=== PATIENT | male | born 1960 | race Caucasian/White ===

== ENCOUNTER 2019-12-12 14:23 | Outpatient (CLI) | payer SELFPAY ==
--- NOTE | 2019-12-12 14:28 | XR_ITS ---
WS: [id number] ANKLE LEFT TECHNIQUE: 2 views of the left ankle CLINICAL INFORMATION: ANKLE PAIN LEFT COMPARISON: None. FINDINGS: Diffuse soft tissue edema. Vascular calcification. Degenerative arthritis at the ankle mortise. Achil les enthesophyte. Tiny plantar calcaneal spur. No acute fractures. XR/XR ankle LT 2V [id number] IMPRESSION: Diffuse soft tissue edema. No acute fractures.
== END 2019-12-12 14:24 | disposition home or self-care (01) ==
LOC: RADWPI 14:26
PROVIDERS: Family Provider Family Medicine; PCP Family Medicine; Visit Provider Family Medicine
DX: M25.572 Pain in left ankle and joints of left foot (principal); R60.9 Edema, unspecified
CPT/HCPCS: 73600

== ENCOUNTER 2019-12-21 10:35 | Inpatient (IN) | payer OTHER, SELFPAY ==
[2019-12-21] VITALS (8 sets, daily range): BP systolic 143–161; BP diastolic 71–89; PULSE 72–96; RESP 18–22; TEMP 36.9–38.1; O2SAT 90–97; BMI 43.4
--- NOTE | 2019-12-21 11:05 | XRR_ITS ---
PROCEDURE INFORMATION: Exam: XR Chest, 1 View Exam date and time: 12/21/2019 11:37 AM Age: 59 years old Clinical indication: Cough and shortness of breath; Patient HX: C/O chest pain, shortness of breath, cough; Additional info: Cough, SOB TECHNIQUE: Imaging protocol: XR of the chest Views: 1 view. COMPARISON: CR Chest 1 [place] [id number] 04/16/2018 4:47 PM FINDINGS: Lungs: Bilateral interstitial thickening, partial left lower lung consolidation. Pleural space: Minimal right costophrenic angle blunting. Heart/Mediastinum: Probable minimal cardiomegaly. Bones/joints: No acute findings. XR/XR chest 1V portable [id number] IMPRESSION: Bilateral pneumonia versus edema, small right pleural effusion.
--- NOTE | 2019-12-21 11:23 | W.ED.SOB ---
HPI - SOB/Dyspnea General: Chief Complaint: Shortness of Breath/Dyspnea Stated Complaint: SOB Time Seen by Provider: 12/21/19 11:04 History of Present Illness: HPI Narrative: 59-year-old male with a history of pneumonia and with concerns of shortness of breath. Patient's been sick for a couple of days went to see his primary care physician was concerned about pneumonia and sent him over to the emergency department for further evaluation. He had some lower oxygen saturations in the office. Patient has had a productive cough. No ill contacts specifically no contacts with coronavirus. The patient does have some bruising on his right side of the st[place] he has no other significant complaints just generally not feeling well. MD elicited complaint: shortness of breath and cough Pertinent past history: pneumonia Onset (ago): day(s) Context: recent illness Timing: constant and progressively worsening Severity: moderate Exacerbating factors: nothing Relieving factors: nothing Physical Exam Const: COMMON NORMALS: no acute distress, average body habitus (Morbid obesity), patient oriented x3, no limitations, healthy appearing, alert and well nourished HENMT: COMMON NORMALS: normocephalic HEAD & SCALP: normocephalic Eye: COMMON NORMALS: Equal, round and reactive pupils present, EOMs intact bilaterally and conjunctivae normal CONJUNCTIVA: Yes conjunctivae normal PUPIL: Yes Equal, round and reactive pupils present Neck/C-Spine: COMMON NORMALS: full ROM, no lymphadenopathy, supple, no meningeal signs, no JVD, Thyroid normal and No carotid bruits THYROID: Thyroid normal Chest: COMMONS NORMALS: normal inspection of the chest and normal palpation of entire chest wall Resp: COMMON NORMALS: normal respiratory effort, No retractions, No use of accessory muscles and clear to auscultation bilaterally AUSCULTATION: clear to auscultation bilaterally Cardio: COMMON NORMALS: no JVD GI: COMMON NORMALS: Normal to inspection, nondistended, normoactive bowel sounds present, Soft to palpation, non-tender, No hepatosplenomegaly present, no masses and no bruits PALPATION: Yes Soft to palpation and Yes No hepatosplenomegaly present : COMMON NORMALS: Yes no CVA tenderness BLADDER/KIDNEY EXAM: Yes no CVA tenderness Back/Pelvis: COMMON NORMALS: no CVA tenderness Extremity: COMMON NORMALS: normal to inspection, full ROM, capillary refill normal, no joint enlargement, no clubbing, cyanosis or edema, no calf tenderness and no pedal edema Neuro: COMMON NORMALS: patient oriented x3 SENSORIUM/ORIENTATION: Yes alert MENINGEAL SIGNS: Yes no meningeal signs Skin: COMMON NORMALS: no rashes or lesions noted (Large ecchymotic lesion over right abdomen), no wounds, turgor normal, no jaundice, no petechiae and no mottling GENERAL SKIN EXAM: no rashes or lesions noted (Large ecchymotic lesion over right abdomen) and turgor normal Course Vital Signs: Vital signs: Vital Signs Temperature 98.5 F 12/21/19 10:48 Pulse Rate 72 12/21/19 13:25 Respiratory Rate 18 12/21/19 13:25 Blood Pressure 143/71 12/21/19 13:25 Pulse Oximetry 92 12/21/19 13:25 MDM - SOB/Dyspnea MDM Narrative: Medical decision making narrative: 59-year-old male in with dyspnea. Congestive heart failure and a variety of different infections are leading in the differential. Routine labs x-ray and further recommendations based on reexamination and continuous vital sign monitoring will be made. Patient has bilateral infiltrates consistent with pneumonia left greater than right I think heart failure is unlikely I think infections more likely we need to test him for coronavirus and admitted to the hospital I talked to his attending outpatient physician Dr. Berg as well as the hospitalist who agrees with admission and admission orders bridge orders were written. Lab Data: Labs: Lab Results 12/21/19 12/21/19 12/21/19 Range/Units 11:21 11:21 11:21 WBC 13.9 H (4.0-10.0) 10^3/ uL RBC 3.84 L (4.1-5.3) 10^6/u L Hgb 11.8 (11.7-16.6) g/dL Hct 36.0 L (42.0-52.0) % MCV 93.8 (80-94) fL MCH 30.7 (28.0-34.0) pg MCHC 32.8 (30.0-36.0) g/dL RDW 13.2 (12.1-15.1) % Plt Count 179 (130-400) 10^3/c mm MPV 10.6 H (7.4-10.4) fL Neut % (Auto) 87.6 % Lymph % (Auto) 3.9 % Harding % (Auto) 7.1 % Eos % (Auto) 0.1 % Baso % (Auto) 0.4 % Neut # (Auto) 12.18 H (1.8-7.7) 10^3/u L Lymph # (Auto) 0.5 L (0.8-4.8) 10^3/u L Harding # (Auto) 1.0 H (0.2-0.9) 10^3/u L Eos # (Auto) 0.0 (0.0-0.8) 10^3/u L Baso # (Auto) 0.1 (0.0-0.1) 10^3/u L Nucleated RBC % (a uto) 0 % Nucleated RBCs # 0.0 /100WBC Sodium 130 L (136-145) mmol/L Potassium 3.1 L (3.5-5.1) mmol/L Chloride 84 L (98-107) mmol/L Carbon Dioxide 32 H (22-29) mmol/L Anion Gap 17.1 (5-19) BUN 18 (8-23) mg/dL Creatinine 1.2 (0.7-1.2) mg/dL GFR Calculation 61.8 L (90-130) mL/min Glucose 369 H (65-115) mg/dL Calculated Osmolal ity 282 L (285-295) mOsm/k g Lactate 0.2 L (0.5-2.2) mmol/L Calcium 8.6 (8.5-10.5) mg/dL Ferritin 641 H (30-400) ng/mL Lactate Dehydrogen ase 354 H (135-225) U/L NT-Pro-B Natriuret Pep (0-125) pg/mL 12/20/ Range/Units 11:28 WBC (4.0-10.0) 10^3/ uL RBC (4.1-5.3) 10^6/u L Hgb (11.7-16.6) g/dL Hct (42.0-52.0) % MCV (80-94) fL MCH (28.0-34.0) pg MCHC (30.0-36.0) g/dL RDW (12.1-15.1) % Plt Count (130-400) 10^3/c mm MPV (7.4-10.4) fL Neut % (Auto) % Lymph % (Auto) % Harding % (Auto) % Eos % (Auto) % Baso % (Auto) % Neut # (Auto) (1.8-7.7) 10^3/u L Lymph # (Auto) (0.8-4.8) 10^3/u L Harding # (Auto) (0.2-0.9) 10^3/u L Eos # (Auto) (0.0-0.8) 10^3/u L Baso # (Auto) (0.0-0.1) 10^3/u L Nucleated RBC % (a uto) % Nucleated RBCs # /100WBC Sodium (136-145) mmol/L Potassium (3.5-5.1) mmol/L Chloride (98-107) mmol/L Carbon Dioxide (22-29) mmol/L Anion Gap (5-19) BUN (8-23) mg/dL Creatinine (0.7-1.2) mg/dL GFR Calculation (90-130) mL/min Glucose (65-115) mg/dL Calculated Osmolal ity (285-295) mOsm/k g Lactate (0.5-2.2) mmol/L Calcium (8.5-10.5) mg/dL Ferritin (30-400) ng/mL Lactate Dehydrogen ase (135-225) U/L NT-Pro-B Natriuret Pep 53 (0-125) pg/mL Discharge Plan Discharge Patient Disposition: Admitted As Inpatient Clinical Impression: Community acquired pneumonia Qualifiers: Laterality: unspecified laterality Qualified Code(s): J18.9 - Pneumonia, unspecified organism Condition: Stable Referrals: Bunny Berg MD [Primary Care Provider] - Coding Level of Care Code ED 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
[2019-12-21 11:35] LABS: Basophils # 0.1 10^3/uL (0.0-0.1); Basophils % 0.4 %; Eosinophils % 0.1 %; Hemoglobin 11.8 g/dL (11.7-16.6); Lymphocytes # 0.5 10^3/uL (0.8-4.8); Lymphocytes % 3.9 %; Mean Corpuscular HGB Conc 32.8 g/dL (30.0-36.0); Mean Corpuscular Hemoglobin 30.7 pg (28.0-34.0); Mean Corpuscular Volume 93.8 fL (80-94); Mean Platelet Volume 10.6 fL (7.4-10.4); Monocytes % 7.1 %; Neutrophils # 12.18 10^3/uL (1.8-7.7); Neutrophils % 87.6 %; Nucleated Red Blood Cells % 0 %; Platelet Count 179 10^3/cmm (130-400); Red Blood Count 3.84 10^6/uL (4.1-5.3); Red Cell Distribution Width 13.2 % (12.1-15.1); White Blood Count 13.9 10^3/uL (4.0-10.0)
[2019-12-21 11:49] LABS: Anion Gap 17.1 (5-19); Blood Urea Nitrogen 18 mg/dL (8-23); Calcium 8.6 mg/dL (8.5-10.5); Carbon Dioxide 32 mmol/L (22-29); Chloride 84 mmol/L (98-107); Ferritin 641 ng/mL (30-400); Glomerular Filtration Rate 61.8 mL/min (90-130); Glucose 369 mg/dL (65-115); Lactate Dehydrogenase 354 U/L (135-225); Osmolality Calculated 282 mOsm/kg (285-295); Potassium 3.1 mmol/L (3.5-5.1); Sodium 130 mmol/L (136-145)
[2019-12-21] MEDS: cefTRIAXone 2,000 MG in sodium chloride 0.9% (plus) 50 ML 100 MG IV (12:32)
[2019-12-21] MEDS: azithromycin 250 mg Tablet 500 MG PO (12:32)
[2019-12-21 12:48] LABS: Lactate (Lactic Acid level) 0.2 mmol/L (0.5-2.2)
[2019-12-21 14:04] LABS: NT Pro B Type Natriuretic Pept 53 pg/mL (0-125)
[2019-12-21] MEDS: dextrose 5%-sod chloride 0.45% 1,000 ML 100 ML IV (14:41)
--- NOTE | 2019-12-21 15:18 | CTR_ITS ---
PROCEDURE INFORMATION: Exam: CT Chest Without Contrast Exam date and time: 12/21/2019 5:54 PM Age: 59 years old Clinical indication: Abdominal tenderness; Cough; Prior surgery; Additional info: Copd/pna TECHNIQUE: Imaging protocol: Computed tomography of the chest without contrast. Radiation optimization: All CT scans at this facility use at least one of these dose optimization techniques: automated exposure control; mA and/or kV adjustment per patient size (includes targeted exams where dose is matched to clinical indication); or iterative reconstruction. COMPARISON: No relevant prior studies available. RADIATION DOSE METRICS: Total DLP (mGy-cm): 9044.86 FINDINGS: Lungs: Bilateral multifocal ground-glass opacities, no focal consolidation. Pleural space: Minimal right pleural thickening versus very small right hemothorax. Heart: No cardiomegaly. No pericardial effusion. Aorta: No aortic aneurysm. Lymph nodes: No significant adenopathy. Bones/joints: No acute findings. Soft tissues: Unremarkable. IMPRESSION: Bilateral pneumonia consistent with COVID-19 pneumonia. Right pleural thickening versus minimal right hemothorax. PROCEDURE INFORMATION: Exam: CT Abdomen And Pelvis Without Contrast Exam date and time: 12/21/2019 5:54 PM Age: 59 years old Clinical indication: Abdominal tenderness; Cough; Prior surgery; Additional info: Copd/pna TECHNIQUE: Imaging protocol: Computed tomography of the abdomen and pelvis without contrast. Radiation optimization: All CT scans at this facility use at least one of these dose optimization techniques: automated exposure control; mA and/or kV adjustment per patient size (includes targeted exams where dose is matched to clinical indication); or iterative reconstruction. COMPARISON: No relevant prior studies available. RADIATION DOSE METRICS: Total DLP (mGy-cm): 3044.86 FINDINGS: Liver: Decreased attenuation is seen in the liver compatible with hepatic steatosis. Gallbladder and bile ducts: Unremarkable. No ductal dilation. Pancreas: Normal. No ductal dilation. Spleen: Normal. No splenomegaly. Adrenals: Normal. No mass. Kidneys and ureters: Normal. No hydronephrosis. Stomach and bowel: No acute findings. No obstruction. No mucosal thickening. Appendix: No evidence of appendicitis. Intraperitoneal space: Unremarkable. No free air. No significant fluid collection. Vasculature: No abdominal aortic aneurysm. Lymph nodes: No significant adenopathy. Bladder: Unremarkable as visualized. Reproductive: Unremarkable as visualized. Bones/joints: No acute findings. Soft tissues: Right anterior/anterolateral abdominal wall edema/inflammation. No focal fluid collection. CT/CT chest abd pel wo con IMPRESSION: No acute intra-abdominal findings. Right abdominal wall edema/inflammation versus hematoma. Radiation Dose CTDIVOL = (mGy): DLP = 3044.86~9044.86 (mGy-cm)
--- NOTE | 2019-12-21 15:26 | P.HP_ITS ---
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 As per the patient he twisted his ankle and fell on December 13. He is not sure which side he did fall. He states overall he fell 3 times that day. Then from Tuesday morning which was December 14 he developed cough along with pain in his right side of the chest going all the way to the back which is pulling type along with expectoration for last 3 days. His who is a nurse was away and today when she came back she noticed him to be fairly out of breath, tachypneic so she brought him to the ER. Patient states he is having yellowish colored expectoration which is more than his baseline denies of having any hemoptysis. Today morning when his was checking him up she saw a huge hem atoma on the left upper torso going all the way to the back. Patient states he is not aware if that hematoma was there before or not. He denies of having any fever but does have subjective feelings of fever. Denies of having any orthopnea, PND, runny nose, known exposure to COVID-19. He states last she was in town was around a month ago other than when he was visiting his primary care provider. Patient has a potential exposure to COVID-19 through his who works as a practical nursing instructor and was last in hospital couple of days ago. In the ER patient was desaturating to 82% on room air so was started on 2 L nasal cannula saturating up to 92%, vitals were normal. Blood work done in the ER shows white count of 13.9, hemoglobin of 11.8, sodium of 130, potassium of 3.1, creatinine of 1.2, lactate of 0.2, ferritin of 641, LDH of 354. Chest x-ray was done which on my interpretation looks like Consolidation in the left lower zone. Review of Systems General: Reports: 10 or more systems reviewed and unremarkable except in HPI and below Const: Denies: fever(s), chills, body aches, change in appetite, change in weight, malaise, night sweats, diaphoresis, change in sleep pattern, daytime sleepiness or snoring Eyes: Denies: change in vision, blurry vision, photophobia, eye discomfort or eye discharge ENMT: Denies: throat pain, enlarged tonsils, hoarseness, mouth pain, oral sores, dry mouth, tinnitus, nasal congestion or post nasal drip Card: Reports: chest pain; Denies: palpitations, irregular heart rhythm, edema, swelling of feet/ankles, lightheadedness, syncope, pre-syncope, dyspnea on exertion, orthopnea, leg pain with exertion or acrocyanosis Resp: Reports: dyspnea, productive cough and wheezing; Denies: non-productive cough, stridor, pain on inspiration, change in phlegm color, hemoptysis or chest congestion GI: Reports: abdominal pain; Denies: nausea, vomiting, hematemesis, coffee ground emesis, dysphagia, heartburn, diarrhea, constipation, bloating, GI cramping, change in bowel habits, pain on defecation, hematochezia or melena : Denies: flank pain, difficulty urinating, dysuria, urinary frequency, urinary urgency, urinary hesitancy, urinary dribbling, difficulty starting urination, change in urine stream, nocturia or hematuria Musc: Denies: neck pain, back pain, extremity pain, joint pain, joint swelling, joint redness, joint stiffness or limited range of motion Neuro: Denies: headache(s), numbness in extremities, weakness in extremities, sensory changes, lack of coordination, difficulty walking, frequent falls, dizziness, vertigo, confusion, Slurred speech present, difficulty communicating thoughts or seizure-like activity Psych: Denies: anxiety, depression, mood swings, panic attacks, hopelessness or irritability Endo: Denies: polyuria, polydipsia, tired all the time, cold intolerance, excessive sweating, flushing or heat intolerance Mason/Lymph: Denies: easy bruising or easy bleeding All/Imm: Denies: tongue swelling, facial swelling or acute wheezing Medications/Allergies Home Medications Medication Instructions Recorded Confirmed Last Taken Type escitalopram oxalate [Lexapro] 10 mg PO DAILY 12/21/19 12/21/19 12/21/19 History furosemide [Lasix] 10 mg PO DAILY PRN 0712/21/19 12/18/19 History glimepiride 4 mg PO BID 12/21/19 12/21/19 12/21/19 History hydrocodone-acetaminophen 1 tab PO Q6H PRN 12/21/19 12/21/19 12/20/19 History insulin NPH and regular human See Rx Instructions .ROUTE .COMPLEX 12/21/19 12/21/19 12/21/19 History [Novolin 70-30 FlexPen U-100] levothyroxine 75 mcg PO DAILY 12/21/19 12/21/19 12/21/19 History simvastatin 10 mg PO DAILY 12/21/19 12/21/19 12/21/19 History Allergies Allergy/AdvReac Type Severity Reaction Status Date / Time No Known Allergies Allergy Verified 12/21/19 10:48 PFSH Acute PFSH: Medical History (Updated 12/21/19 @ 16:07 by Sandip Guzman MD) CAD (coronary artery disease) CKD (chronic kidney disease), stage III Diabetes Hypertension Hypothyroid Myasthenia gravis REINALDO (obstructive sleep apnea) Recurrent pneumonia Thoracic ascending aortic aneurysm Surgical History (Updated 12/21/19 @ 15:28 by Sandip Guzman MD) History of appendectomy Vasectomy status Social History (Updated 12/21/19 @ 15:29 by Sandip Guzman MD) Smoking and tobacco status: former smoker Alcohol intake: former Substance/Drug Use: former Date of last use: Amphetamines before 1997 Household members: spouse and family Housing: House Vitals/I&O/Wt Last Vital Signs Temp 98.5 F 12/21/19 10:48 Pulse 72 12/21/19 13:25 Resp 18 12/21/19 13:25 BP 143/71 12/21/19 13:25 Pulse Ox 92 12/21/19 13:25 12/21/19 12/21/19 12/21/19 06:59 14:59 22:59 Intake Total 50 / 50 Balance 50 / 50 Weight last 48 hrs Weight 145.15 kg Physical Exam Narrative: EXAM NARRATIVE: General: AO x3, morbidly obese, in distress because of cough, saturating 92% on 2 L but desaturating on minimal exertion and talking to 86%. HEENT: PERRLA, pupils bilaterally equal and reactive Chest: Normal vesicular breath sounds left-sided bronchial breath sounds, occasional rhonchi with decreased air entry, CVS: S1-S2 regular, no murmurs, no tachycardia, no gallops, no rubs Abdomen: Soft, obese, tender in left middle quadrant, hematoma patient looks subcutaneous present in the abdominal wall ,no organomegaly, bowel sounds present Neuro: No focal deficits, no facial deformity, AO x3, power 5/5 in all limbs Data : 12/21/19 11:21 12/21/19 11:21 Micro: Microbiology 12/21/19 12:32 Blood Culture - Preliminary Blood SPECIMEN COLLECTED 12/21/19 11:21 Blood Culture - Preliminary Blood SPECIMEN COLLECTED A&P Assessment and plan (1) Community acquired pneumonia: Status: Acute Qualifiers: Laterality: unspecified laterality Qualified Code(s): J18.9 - Pneumonia, unspecified organism (2) Hypoxia: Status: Acute (3) REINALDO (obstructive sleep apnea): Status: Acute (4) Myasthenia gravis: Status: Acute (5) CKD (chronic kidney disease), stage III: Status: Acute (6) Hypertension: Status: Acute (7) Diabetes: Status: Acute (8) Hypothyroid: Status: Acute (9) Abdominal wall hematoma: Status: Acute (10) Chronic steroid use: Status: Acute Additional A&P Information 59-year-old man with past medical history of recurrent pneumonia, obstructive sleep apnea, myasthenia gravis, hypertension, type 2 diabetes mellitus, presents to the ER today because of hypoxia, cough which is been going on for last 4 to 5 days. Acute hypoxic respiratory failure: Community-acquired pneumonia: Check CT chest abdomen pelvis without contrast to rule out rib fracture, internal bleed, to have a better look at the consolidation, to rule out PJP because of chronic steroid use. Start patient on ceftriaxone, azithromycin to cover for community-acquired pneumonia. COVID-19 has been sent from the ER. Contact and droplet isolation precautions. Start patient on thiamine 100 mg twice daily, ascorbic acid 500 mg twice daily, zinc. If COVID-19 negative will discontinue vitamin C and zinc. For now we will hold off on starting full dose Bactrim because that can cause IWONA. Most likely patient should be discharged up on Bactrim prophylaxis because of chronic steroid use. Check sputum culture, urine Legionella, bacterial antigen, blood culture, urinalysis, urine culture, LDH, ferritin, procalcitonin, lactic acid, beta D glucan, PCP serologies. Oxygen supplementation keeping saturation over 92%. SpirRigoberto [place], For myasthenia gravis: Increase prednisone to 40 mg twice daily. That will also help with possible PCP or COVID-19. If both are negative will decrease back to home dose of 20 mg daily. NIF study is -40. Patient has history of REINALDO so might require CPAP overnight. He is fairly noncompliant at home. Last echocardiogram from 2018 shows an EF of 68%, mildly dilated RA, mild LVH, mild left ear, mild pulmonary hypertension with RVSP of 39 mmHg. Normal saline at 50 cc/h. CKD stage III: Baseline creatinine seems to be around 1.4. Creatinine today 1.2. Patient does have electrolyte abnormality with sodium of 130 and potassium of 3.1. Most likely because of dehydration. IV fluids as above. Anion gap of 12. Hypertension: Patient has a history of hypertension but is not any medication as per the medication list. Goal blood pressure less than 140/90 mmHg. Type 2 diabetes mellitus: Insulin at high-dose protocol. Carb consistent diet. Full code. Lovenox for DVT prophylaxis Carb consistent diet. Will change medication as per the clinical picture and results of the tests ordered. Admit to [facility] with COVID-19 precautions. Attestations Medical Necessity Statement*: More than 2 midnights for acute hypoxic respiratory failure because of pneumonia Time Spent in Patient Care: Greater than 35 minutes (>than 50% of time spent in counselling and/or direct pt care on unit) . 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
[2019-12-21] MEDS: ketorolac 30 mg/mL INJ IVP (15:57)
[2019-12-21 16:06] LABS: D Dimer 1.12 ug/mIFEU (0-0.59)
--- NOTE | 2019-12-21 16:18 | CTR_ITS ---
PROCEDURE INFORMATION: Exam: CT Angiography Chest With Contrast Exam date and time: 12/21/2019 5:54 PM Age: 59 years old Clinical indication: Cough with hemorrhage; Additional info: R/O pe, pna TECHNIQUE: Imaging protocol: Computed tomographic angiography of the chest with intravenous contrast. 3D rendering: MIP and/or 3D reconstructed images were created by the technologist. Radiation optimization: All CT scans at this facility use at least one of these dose optimization techniques: automated exposure control; mA and/or kV adjustment per patient size (includes targeted exams where dose is matched to clinical indication); or iterative reconstruction. Contrast material: OMNI 350; Contrast volume: 95 ml; Contrast route: INTRAVENOUS (IV); COMPARISON: CTA Thoracic Aorta [id number] 02/24/2018 10:57 AM RADIATION DOSE METRICS: Total DLP (mGy-cm): 636.88 FINDINGS: Pulmonary arteries: No pulmonary emboli. Aorta: No aortic aneurysm. No aortic dissection. Lungs: Bilateral multifocal ground-glass opacities. No focal consolidation. Pleural space: Right pleural thickening versus very small right hemothorax. No pneumothorax. Heart: No cardiomegaly. No pericardial effusion. Lymph nodes: No significant adenopathy. Bones/joints: No acute findings. Soft tissues: Unremarkable. CT/CT angio chest PE protcl [id number] IMPRESSION: No pulmonary embolism. Bilateral pneumonia consistent with COVID-19 pneumonia. Radiation Dose CTDIVOL = (mGy): DLP = 636.88 (mGy-cm)
[2019-12-21 16:27] LABS: Influenza A by IFA Negative (Negative); Influenza B by IFA Negative (Negative)
[2019-12-21 17:37] LABS: Procalcitonin 0.47 ng/mL (0-0.5)
[2019-12-21 17:47] LABS: Iron 23 ug/dL (59-158); Percent Saturation 10.6 % (20-50); Total Iron Binding Capacity 216 mcg/dl; Unsaturated Iron Binding 193 ug/dL (112-347)
[2019-12-21 18:06] LABS: Specific Gravity, Urine 1.015 (1.005-1.030); Urine Appearance Clear (CLEAR); Urine Color Yellow (Yellow); pH Urine 5 (5-7)
[2019-12-21 18:07] LABS: Bilirubin Urine Neg (NEGATIVE); Blood Urine Neg (Negative); Glucose Urine UA 4+ (Normal); Ketones Urine Negative (Negative); Leukocyte Esterase Urine Negative (Negative); Nitrate Urine Negative (Negative); Protein Urine Neg (Negative); Urobilinogen Urine Neg (Negative)
[2019-12-21 18:12] LABS: Add Urine Culture? No; Bacteria Urine TRACE; Squamous Epithelial Cell Urine 0-4 (0-5)
[2019-12-21] MEDS: acetaminophen 325 mg Tablet 650 MG PO (20:43)
[2019-12-21] MEDS: famotidine 20 mg/2 mL INJ IVP (20:43)
[2019-12-21] MEDS: predniSONE 20 mg Tablet 40 MG PO (20:44)
[2019-12-21] MEDS: FUROsemide 10 mg/mL SDV 2mL 20 MG IVP (21:01)
[2019-12-21 21:18] LABS: HIV 1 & 2 Antibody Non-Reactive (Non-Reactiv); HIV 1 & 2 Antigen Non-Reactive (Non-Reactiv)
[2019-12-21] MEDS: iohexol 350 mg/mL 100 mL Btl IV (21:28)
[2019-12-21 22:25] LABS: Glucose Point of Care 216 mg/dL (70-110)
[2019-12-22] VITALS (30 sets, daily range): BP systolic 138–174; BP diastolic 75–95; PULSE 68–102; RESP 18–43; TEMP 36.6–37.8; O2SAT 88–98; BMI 43.4
--- NOTE | 2019-12-22 00:44 | PC.NURSE ---
pt to the floor in a mildly distressed state. During assessment, pt was with bilateral crackles in lungs, then verified with RT Catina. Pt stated he takes lasix at home but did not take them today. Also examined a very large hematoma on pt abd spanning midline at belly button wrapping around right chest wall. I called teagan about my concerns and he ordered a stop to fluids and the scheduled lovenox and he ordered 20mg lasix IVP once and SCDs for VTE prophalaxis. After a few hours it was noticed the orders for lovenox and fluids were reordered by Cassandra. I called Dr candelaria again to clarify and he told me to clarify with Guillermo. I texted and called Megan at 0030 i also left a message. Waiting for clarification from Dr. Guzman.
[2019-12-22 06:49] LABS: Glucose Point of Care 357 mg/dL (70-110)
[2019-12-22 07:05] LABS: Basophils % 0.2 %; Hematocrit 35.3 % (42.0-52.0); Hemoglobin 11.9 g/dL (11.7-16.6); Lymphocytes # 0.6 10^3/uL (0.8-4.8); Lymphocytes % 4.3 %; Mean Corpuscular HGB Conc 33.7 g/dL (30.0-36.0); Mean Corpuscular Hemoglobin 31.8 pg (28.0-34.0); Mean Corpuscular Volume 94.4 fL (80-94); Mean Platelet Volume 10.8 fL (7.4-10.4); Monocytes % 7.4 %; Neutrophils # 11.19 10^3/uL (1.8-7.7); Neutrophils % 86.7 %; Nucleated Red Blood Cells % 0 %; Platelet Count 174 10^3/cmm (130-400); Red Blood Count 3.74 10^6/uL (4.1-5.3); White Blood Count 12.9 10^3/uL (4.0-10.0)
[2019-12-22 07:28] LABS: Alanine Aminotransferase 32 U/L (0-41); Albumin Level 3.7 g/dL (3.5-5.2); Alkaline Phosphatase 63 IU/L (40-130); Anion Gap 16.6 (5-19); Aspartate Amino Transferase 41 U/L (0-40); Blood Urea Nitrogen 23 mg/dL (8-23); Calcium 8.8 mg/dL (8.5-10.5); Carbon Dioxide 34 mmol/L (22-29); Chloride 88 mmol/L (98-107); Globulin 3.4 g/dL (1.3-4.6); Glomerular Filtration Rate 61.8 mL/min (90-130); Glucose 351 mg/dL (65-115); Osmolality Calculated 291 mOsm/kg (285-295); Potassium 3.6 mmol/L (3.5-5.1); Sodium 135 mmol/L (136-145); Total Bilirubin 0.9 mg/dL (0.15-1.2); Total Protein 7.1 g/dL (6.6-8.7)
[2019-12-22 09:31] LABS: Estmated Average Glucose 226; Hemoglobin A1C 9.5 % (4.0-6.0)
--- NOTE | 2019-12-22 10:00 | PC.CHAP ---
Pastoral Care Encounter/Spiritual Assessment Type of Contact [] Declined cognos consultant visit [] Patient/Family/Request visit [] Outpatient visit [] Follow-up visit [] Physician referral [] Code/Alert [] Routine visit [] Staff referral [] Actively dying [] Patient sleeping [] Family support [] [] Out of room [] Palliative care [] [] Receiving care in room [] Pre-surgical visit [] Trauma [] Long length of stay [] ICU visit [X] Other:COVID PT. SKIPPED VISIT PER DIRECTIVE Relational/Emotional Strength [] Patient feels connected with others/family/visitors/staff [] Distress [] Loneliness/isolation [] Abandonment Spirituality of Patient [] Person of [place] [] Attends [facility] of their [place] [] Believes in Prayer [] Reads Bible or Christian materials [] There are Spiritual issues to be addressed [employer] Assistant Interventions [] Prayer [] Active listening [] Non-anxious presence [] Spiritual/emotional support [] Crisis/trauma care [] Spiritual counseling [] Bereavement support [] Provided bereavement packet [] Provided Bible/devotional materials [] Provided toy/stuffed animal, coloring book to patient or family member [] Provided Communion [] Anointing/[place] [] Salvation [] Completed spiritual assessment [] Other: Impact on Illness or Injury [] Angry [] Fearful [] Anxious [] Often cries [] Exhaustion [] Unable to work [] Unable to attend orthodoxy [] Unable to walk/stand [] Unable to read [] Unable to drive [] Unable to eat/drink [] Unable to sleep [] Unable to be with family [] Patient intubated [] Other: Summary Time spent with patient
[2019-12-22] MEDS: azithromycin 250 mg Tablet 500 MG PO (10:31)
[2019-12-22] MEDS: famotidine 20 mg/2 mL INJ IVP ×2 (10:31→20:19)
[2019-12-22] MEDS: zinc gluconate 50 mg Tablet PO (10:31)
[2019-12-22] MEDS: thiamine 100 mg Tablet PO ×2 (10:32→18:15)
[2019-12-22] MEDS: escitalopram 10 mg Tablet PO (10:32)
[2019-12-22] MEDS: atorvastatin 40 mg Tablet 20 MG PO (10:32)
[2019-12-22] MEDS: levothyroxine 50 mcg Tablet 75 MCG PO (10:33)
[2019-12-22] MEDS: ascorbic acid 500 mg Tablet 1000 MG PO ×2 (10:38→18:15)
[2019-12-22] MEDS: predniSONE 20 mg Tablet 40 MG PO (10:39)
[2019-12-22 11:44] LABS: Glucose Point of Care 307 mg/dL (70-110)
--- NOTE | 2019-12-22 11:57 | XRR_ITS ---
PROCEDURE INFORMATION: Exam: XR Chest, 1 View Exam date and time: 12/22/2019 8:40 PM Age: 59 years old Clinical indication: Shortness of breath; Additional info: Pna TECHNIQUE: Imaging protocol: XR of the chest Views: 1 view. COMPARISON: CR XR chest 1V portable [id number] 12/21/2019 11:27 AM FINDINGS: Lungs: Interval slight worsening of the patchy bilateral airspace opacities. Pleural space: Right lateral basilar pleural thickening again evident. Possible interval minimal left lateral basilar pleural fluid. Still no pneumothorax. Heart/Mediastinum: Interval slight cardiomegaly. Continued splaying of the patricia suggesting left atrial enlargement. Vasculature: Elongated aorta again evident. Bones/joints: No obvious change in the bones. XR/XR chest 1V portable [id number] IMPRESSION: Interval slight worsening of the bilateral lung disease consistent with pneumonia. Right lateral basilar pleural thickening or fluid still present. Possible interval minimal left lateral basilar pleural fluid. Interval slight cardiomegaly. Left atrial enlargement still suspected.
[2019-12-22 12:17] LABS: ABG PCO2 44.1 mmHg (35-45); ABG PH Result 7.53 (7.35-7.45); Alveolar-Arterial Oxygen Gradi 137.9 mmHg (5-10); Arterial Blood Gas Hematocrit 37.6 % (42-52); Base Excess ABG 12.2 mmol/L (-2.0-2.0); Blood Gas Allen Test Pos; Blood Gas LPM 4.5 %; Blood Gas Sample Site Radial, right; Blood Gas Sample Type Arterial; Carboxyhemoglobin 1.6 %THgb (0.4-20.1); HCO3 ABG 36.4 mmol/L (22-26); Ionized Calcium Level - ABG 1.1 mmol/L (1.1-1.4); Methemoglobin 0.7 % (0.4-1.5); Oxygen Device NC; Oxygen Saturation ABG 93.1; PO2 ABG 61.8 mmHg (80.0-100.0); Potassium Level - ABG 3.1 mmol/L (3.5-5.0); Total Hemoglobin 12.3 g/dL (14-18)
[2019-12-22] MEDS: FUROsemide 10 mg/mL SDV 4mL 40 MG IVP ×2 (12:31→18:08)
[2019-12-22] MEDS: cefTRIAXone 1,000 MG in sodium chloride 0.9% (plus) 50 ML 100 MG IV (12:32)
[2019-12-22] MEDS: sodium chloride 0.9% 1,000 ML 75 ML IV (12:33)
[2019-12-22] MEDS: insulin glargine 100 units/1 mL 10 UNIT SUBCUT (12:59)
[2019-12-22 14:22] LABS: Ferritin 896 ng/mL (30-400); Lactate Dehydrogenase 474 U/L (135-225)
[2019-12-22 16:59] LABS: D Dimer 1.22 ug/mIFEU (0-0.59)
--- NOTE | 2019-12-22 17:49 | PC.NURSE ---
PT TRANSFERRED TO [facility] AT [facility]PROX. 1645
--- NOTE | 2019-12-22 17:51 | PC.NURSE ---
AT [facility] 1515 PAYROLL SPECIALIST WENT TO TAKE VITALS ON PT, AND HIS O2 WAS 78%, NEWS CAMERAMAN WAS CALLED FROM ANOTHER ROOM, NEWS CAMERAMAN CONTACTED RT AND DR. QIU.
[2019-12-22 18:04] LABS: Glucose Point of Care 444 mg/dL (70-110)
[2019-12-22] MEDS: dexamethasone 10 mg/mL INJ 6 MG IVP (18:08)
[2019-12-22] MEDS: enoxaparin 30 mg/0.3 mL Syringe SUBCUT (18:14)
[2019-12-22] MEDS: enoxaparin 120 mg/0.8 mL Syringe SUBCUT (18:15)
[2019-12-22] MEDS: benzonatate 100 mg Capsule 200 MG PO (18:16)
--- NOTE | 2019-12-22 18:35 | P.TS_ITS ---
Transfer Summary Providers Date of Admission: 12/21/19 12:42 Date of Discharge: 12/22/19 Attending Provider at Admission: Sandip Guzman MD Attending Provider at Transfer: Sandip Guzman MD Primary Care Provider: Bunny Berg MD Anticipated Date of Transfer: Anticipated date of transfer: 12/22/19 Receiving Facility & Provider: Receiving Provider: [Dr. Haley ] Receiving facility: [facility] ICU Diagnoses at Discharge Discharge Diagnosis (1) Community acquired pneumonia: Status: Acute Qualifiers: Laterality: unspecified laterality Qualified Code(s): J18.9 - Pneumonia, unspecified organism (2) Hypoxia: Status: Acute (3) REINALDO (obstructive sleep apnea): Status: Acute (4) Myasthenia gravis: Status: Acute (5) CKD (chronic kidney disease), stage III: Status: Acute (6) Hypertension: Status: Acute (7) Diabetes: Status: Acute (8) Hypothyroid: Status: Acute (9) Abdominal wall hematoma: Status: Acute (10) Chronic steroid use: Status: Acute (11) ARDS (adult respiratory distress syndrome): Status: Acute (12) COVID-19 virus test result unknown: Status: Acute Reason for Visit Reason for Visit: SOB Hospital Course Discharge Summary: Hank Gonzalez is a 59 year old male with past medical history of myasthenia gravis on prednisone 20 mg daily at least for last 5 years, hypothyroidism, CKD stage III, hypertension, type 2 diabetes mellitus, history of recurrent community-acquired 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 As per the patient he twisted his ankle and fell on December 13. He is not sure which side he did fall. He states overall he fell 3 times that day. Then from Tuesday morning which was December 14 he developed cough along with pain in his right side of the chest going all the way to the back which is pulling type along with expectoration for last 3 days. His who is a nurse was away and today when she came back she noticed him to be fairly out of breath, tachypneic so she brought him to the ER. Patient states he is having yellowish colored expectoration which is more than his baseline denies of having any hemoptysis. Today morning when his was checking him up she saw a huge hematoma on the left upper torso going all the way to the back. Patient states he is not aware if that hematoma was there before or not. He denies of having any fever but does have subjective feelings of fever. D enies of having any orthopnea, PND, runny nose, known exposure to COVID-19. He states last she was in town was around a month ago other than when he was visiting his primary care provider. Patient has a potential exposure to COVID- 19 through his who works as a director school of nursing and was last in hospital couple of days ago. In the ER patient was desaturating to 82% on room air so was started on 2 L nasal cannula saturating up to 92%, vitals were normal. Blood work done in the ER shows white count of 13.9, hemoglobin of 11.8, sodium of 130, potassium of 3.1, creatinine of 1.2, lactate of 0.2, ferritin of 641, LDH of 354. Chest x-ray was done which on my interpretation looks like Consolidation in the left lower zone. He was admitted to the hospital. COVID-19 was sent out. At start he was requiring 2 L of oxygenation. He was started on increased dose of steroids.NIF study done on admission was -40. CTA chest abdomen pelvis done on admission was negative for any acute intra-abdominal pathology, no pulmonary embolism but were consistent with bilateral pneumonia consistent with COVID-19 pneumonia as per the radiology read. Other possibility was a possible PCP pneumonia given the fact that patient has been on high-dose steroids without Bactrim prophylaxis. PCP PCR and D glucan have been sent out and the results are awaited. Bactrim has not been started as we are still awaiting COVID-19 results and we do not want patient to go into acute kidney injury because of Bactrim. Today morning patient was doing fine and was saturating more than 93% on 2 L nasal cannula but around 4:30 PM patient started having extreme bout of cough after which he required more and more off oxygen supplementation at present is on 100% oxygen supplementation 50 L high flow nasal cannula saturating 91%. Patient is denying of any chest pain. He has been started on full dose anticoagulation. He is also been started on IV Decadron. He is receiving IV Lasix and is around 1.5 L negative. COVID-19 results are still pending. But because patient has a high chance of COVID-19 and is full code and most likely requires further treatment including conventional plasma, prone ventilation treatment which is not possible at [facility] higher tertiary center transfer was sought and patient was accepted at [facility] ICU. Physical Exam Narrative: EXAM NARRATIVE: General: AO x3, morbidly obese, in distress because of cough, saturating 92% on 2 L but desaturating on minimal exertion and talking to 86%. HEENT: PERRLA, pupils bilaterally equal and reactive Chest: Normal vesicular breath sounds left-sided bronchial breath sounds, occasional rhonchi with decreased air entry, CVS: S1-S2 regular, no murmurs, no tachycardia, no gallops, no rubs Abdomen: Soft, obese, tender in left middle quadrant, hematoma patient looks subcutaneous present in the abdominal wall ,no organomegaly, bowel sounds present Neuro: No focal deficits, no facial deformity, AO x3, power 5/5 in all limbs TS Data Data Completed and Pending: Completed Studies During Hospitalization Category Date Time Status CT angio chest PE protcl [id number] Urge nt Cat Scan 12/21/19 16:[address] chest abd pel wo con Urgent Cat Scan 12/21/19 15:18 Completed XR chest 1V akshat ble [id number] Urgent Exams 12/21/19 11:05 Completed Pending at discharge Category Date Time Status XR chest 1V akshat ble [id number] Stat Exams 12/22/19 11:57 Ordered ABG FULL [Arteria l Blood Gas Full] Stat Lab 12/22/19 12:06 Results Arterial Blood Ga s Full Routine Lab 12/22/19 19:00 Ordered Blood Culture Sta t Lab 12/21/19 12:32 Results Complete Blood Co unt w/Auto AM LABS Lab 12/23/19 04:00 Ordered Comprehensive Met abolic Panel AM LA BS Lab 12/23/19 04:00 Ordered Coronavirus Lab T est PTC Routine Lab 12/21/19 14:18 Received D Dimer AM LABS Lab 12/23/19 04:00 Ordered D Dimer AM LABS Lab 12/24/19 04:00 Ordered Ferritin AM LABS Lab 12/23/19 04:00 Ordered Ferritin AM LABS Lab 12/24/19 04:00 Ordered Lactate Dehydroge nase AM LABS Lab 12/23/19 04:00 Ordered Lactate Dehydroge nase AM LABS Lab 12/24/19 04:00 Ordered MRSA by PCR Routi ne Lab 12/21/19 15:55 Ordered Miscellaneous Becca t Routine Lab 12/21/19 20:07 Ordered Miscellaneous Becca t Stat Lab 12/21/19 20:08 Ordered Sputum Culture an d Gram Stain Stat Lab 12/21/19 17:00 Results Labs from last 24 hours 12/22/19 12/22/19 12/22/19 17:59 13:35 12:06 WBC RBC Hgb Hct MCV MCH MCHC RDW Plt Count MPV Neut % (Auto) Lymph % (Auto) [place] % (Auto) Eos % (Auto) Baso % (Auto) Neut # (Auto) Lymph # (Auto) [place] # (Auto) Eos # (Auto) Baso # (Auto) Nucleated RBC % (a uto) Nucleated RBCs # D-Dimer Specimen Type Arterial Sample Site Radial, right ABG pH 7.53 H ABG pCO2 44.1 ABG pO2 61.8 L ABG HCO3 36.4 H ABG O2 Saturation 93.1 ABG Base Excess 12.2 H Marco A Test Pos A-a O2 Gradient 137.9 H Hematocrit 37.6 L Hgb O2 Saturation 91.0 L Carboxyhemoglobin 1.6 Methemoglobin 0.7 Total Hemoglobin 12.3 L Ionized Calcium 1.1 O2 Delivery Device Nc O2 Liters/Min 4.5 FiO2 36.0 Mill Order Scheduler ID ed Sodium Pending Potassium 3.1 L Chloride Carbon Dioxide Anion Gap BUN Creatinine GFR Calculation Glucose 341.0 H POC Glucose 444 Estimat Average Gl ucose Hemoglobin A1c Calculated Osmolal ity Calcium Ferritin 896 H Total Bilirubin AST ALT Alkaline Phosphata se Lactate Dehydrogen ase 474 H Total Protein Albumin Globulin HIV 1&2 Ab & HIV 1 Ag HIV 1&2 Antibody 12/22/19 12/22/19 12/22/19 11:22 06:45 06:40 WBC RBC Hgb Hct MCV MCH MCHC RDW Plt Count MPV Neut % (Auto) Lymph % (Auto) [place] % (Auto) Eos % (Auto) Baso % (Auto) Neut # (Auto) Lymph # (Auto) [place] # (Auto) Eos # (Auto) Baso # (Auto) Nucleated RBC % (a uto) Nucleated RBCs # D-Dimer 1.22 H Specimen Type Sample Site ABG pH ABG pCO2 ABG pO2 ABG HCO3 ABG O2 Saturation ABG Base Excess Marco A Test A-a O2 Gradient Hematocrit Hgb O2 Saturation Carboxyhemoglobin Methemoglobin Total Hemoglobin Ionized Calcium O2 Delivery Device O2 Liters/Min FiO2 Mill Order Scheduler ID Sodium Potassium Chloride Carbon Dioxide Anion Gap BUN Creatinine GFR Calculation Glucose POC Glucose 307 357 Estimat Average Gl ucose Hemoglobin A1c Calculated Osmolal ity Calcium Ferritin Total Bilirubin AST ALT Alkaline Phosphata se Lactate Dehydrogen ase Total Protein Albumin Globulin HIV 1&2 Ab & HIV 1 Ag HIV 1&2 Antibody 12/22/19 12/22/19 12/22/19 06:40 06:40 06:40 WBC 12.9 H RBC 3.74 L Hgb 11.9 Hct 35.3 L MCV 94.4 H MCH 31.8 MCHC 33.7 RDW 13.0 Plt Count 174 MPV 10.8 H Neut % (Auto) 86.7 Lymph % (Auto) 4.3 [place] % (Auto) 7.4 Eos % (Auto) 0.0 Baso % (Auto) 0.2 Neut # (Auto) 11.19 H Lymph # (Auto) 0.6 L [place] # (Auto) 1.0 H Eos # (Auto) 0.0 Baso # (Auto) 0.0 Nucleated RBC % (a uto) 0 Nucleated RBCs # 0.0 D-Dimer Specimen Type Sample Site ABG pH ABG pCO2 ABG pO2 ABG HCO3 ABG O2 Saturation ABG Base Excess Marco A Test A-a O2 Gradient Hematocrit Hgb O2 Saturation Carboxyhemoglobin Methemoglobin Total Hemoglobin Ionized Calcium O2 Delivery Device O2 Liters/Min FiO2 Mill Order Scheduler ID Sodium 135 L Potassium 3.6 Chloride 88 L Carbon Dioxide 34 H Anion Gap 16.6 BUN 23 Creatinine 1.2 GFR Calculation 61.8 L Glucose 351 H POC Glucose Estimat Average Gl ucose 226 Hemoglobin A1c 9.5 H Calculated Osmolal ity 291 Calcium 8.8 Ferritin Total Bilirubin 0.9 AST 41 H ALT 32 Alkaline Phosphata se 63 Lactate Dehydrogen ase Total Protein 7.1 Albumin 3.7 Globulin 3.4 HIV 1&2 Ab & HIV 1 Ag HIV 1&2 Antibody 12/21/19 12/21/19 22:12 11:21 WBC RBC Hgb Hct MCV MCH MCHC RDW Plt Count MPV Neut % (Auto) Lymph % (Auto) [place] % (Auto) Eos % (Auto) Baso % (Auto) Neut # (Auto) Lymph # (Auto) [place] # (Auto) Eos # (Auto) Baso # (Auto) Nucleated RBC % (a uto) Nucleated RBCs # D-Dimer Specimen Type Sample Site ABG pH ABG pCO2 ABG pO2 ABG HCO3 ABG O2 Saturation ABG Base Excess Marco A Test A-a O2 Gradient Hematocrit Hgb O2 Saturation Carboxyhemoglobin Methemoglobin Total Hemoglobin Ionized Calcium O2 Delivery Device O2 Liters/Min FiO2 Mill Order Scheduler ID Sodium Potassium Chloride Carbon Dioxide Anion Gap BUN Creatinine GFR Calculation Glucose POC Glucose 216 Estimat Average Gl ucose Hemoglobin A1c Calculated Osmolal ity Calcium Ferritin Total Bilirubin AST ALT Alkaline Phosphata se Lactate Dehydrogen ase Total Protein Albumin Globulin HIV 1&2 Ab & HIV 1 Ag Non-reactive HIV 1&2 Antibody Non-reactive Addt'l Data from Hospital Stay: CTA PE protocol: Patient: Hank Gonzalez #: [id number] : 9Acct#:[id number] Age/Sex: 59 / MADM Date: 12/21/19 Loc: [facility]/Bed: [facility] Attending Dr: Sandip Guzman MD Ordering Provider/Ordering MD: Sandip Guzman MD Date of Service: 12/21/19 Procedure(s): CT angio chest PE protcl [id number] Accession Number(s): [id number] Report Number: [id number] PROCEDURE INFORMATION: Exam: CT Angiography Chest With Contrast Exam date and time: 12/21/2019 5:54 PM Age: 59 years old Clinical indication: Cough with hemorrhage; Additional info: R/O pe, pna TECHNIQUE: Imaging protocol: Computed tomographic angiography of the chest with intravenous contrast. 3D rendering: MIP and/or 3D reconstructed images were created by the technologist. Radiation optimization: All CT scans at this facility use at least one of these dose optimization techniques: automated exposure control; mA and/or kV adjustment per patient size (includes targeted exams where dose is matched to clinical indication); or iterative reconstruction. Contrast material: OMNI 350; Contrast volume: 95 ml; Contrast route: INTRAVENOUS (IV); COMPARISON: CTA Thoracic Aorta [id number] 02/24/2018 10:57 AM RADIATION DOSE METRICS: Total DLP (mGy-cm): 636.88 FINDINGS: Pulmonary arteries: No pulmonary emboli. Aorta: No aortic aneurysm. No aortic dissection. Lungs: Bilateral multifocal ground-glass opacities. No focal consolidation. Pleural space: Right pleural thickening versus very small right hemothorax. No pneumothorax. Heart: No cardiomegaly. No pericardial effusion. Lymph nodes: No significant adenopathy. Bones/joints: No acute findings. Soft tissues: Unremarkable. CT/CT angio chest PE protcl [id number] IMPRESSION: No pulmonary embolism. Bilateral pneumonia consistent with COVID-[address] abdomen pelvis: PROCEDURE INFORMATION: Exam: CT Abdomen And Pelvis Without Contrast Exam date and time: 12/21/2019 5:54 PM Age: 59 years old Clinical indication: Abdominal tenderness; Cough; Prior surgery; Additional info: Copd/pna TECHNIQUE: Imaging protocol: Computed tomography of the abdomen and pelvis without contrast. Radiation optimization: All CT scans at this facility use at least one of these dose optimization techniques: automated exposure control; mA and/or kV adjustment per patient size (includes targeted exams where dose is matched to clinical indication); or iterative reconstruction. COMPARISON: No relevant prior studies available. RADIATION DOSE METRICS: Total DLP (mGy-cm): 3044.86 FINDINGS: Liver: Decreased attenuation is seen in the liver compatible with hepatic steatosis. Gallbladder and bile ducts: Unremarkable. No ductal dilation. Pancreas: Normal. No ductal dilation. Spleen: Normal. No splenomegaly. Adrenals: Normal. No mass. Kidneys and ureters: Normal. No hydronephrosis. Stomach and bowel: No acute findings. No obstruction. No mucosal thickening. Appendix: No evidence of appendicitis. Intraperitoneal space: Unremarkable. No free air. No significant fluid collection. Vasculature: No abdominal aortic aneurysm. Lymph nodes: No significant adenopathy. Bladder: Unremarkable as visualized. Reproductive: Unremarkable as visualized. Bones/joints: No acute findings. Soft tissues: Right anterior/anterolateral abdominal wall edema/inflammation. No focal fluid collection. CT/CT chest abd pel wo con IMPRESSION: No acute intra-abdominal findings. Right abdominal wall edema/inflammation versus hematoma. Vitals: Last Vital Signs Temp 98.3 F 12/22/19 12:00 Pulse 102 H 12/22/19 16:30 Resp 26 H 12/22/19 16:30 BP 138/85 12/22/19 12:00 Pulse Ox 91 12/22/19 16:30 TS Medications Medications Home Medications escitalopram oxalate [Lexapro] 10 mg PO DAILY 12/21/19 [History Confirmed 12/21/19] furosemide [Lasix] 10 mg PO DAILY PRN 12/21/19 [History Confirmed 12/21/19] glimepiride 4 mg PO BID 12/21/19 [History Confirmed 12/21/19] hydrocodone-acetaminophen 1 tab PO Q6H PRN 12/21/19 [History Confirmed 12/21/19] insulin NPH and regular human [Novolin 70-30 FlexPen U-100] See Rx Instructions .ROUTE .COMPLEX 12/21/19 [History Confirmed 12/21/19] levothyroxine 75 mcg PO DAILY 12/21/19 [History Confirmed 12/21/19] simvastatin 10 mg PO DAILY 12/21/19 [History Confirmed 12/21/19] Active Medications Acetaminophen (Tylenol) 650 mg PO Q6H PRN PRN Reason: Mild/Mod Pain Or Temp >/= 101 Last Admin: 12/21/19 20:43 Dose: 650 mg Documented by: Hydrocodone Bitart/Acetaminophen ([place] 5-325 Mg) 1 tab PO Q6H PRN PRN Reason: Pain Albuterol Sulfate (Albuterol) 2.5 mg INHALATION Q4H.RESPIRATORY PRN PRN Reason: SHORTNESS OF BREATH Albuterol Sulfate (Ventolin) 2 puff INHALATION Q4H.RESPIRATORY PRN PRN Reason: SHORTNESS OF BREATH Ascorbic Acid (Vitamin C) 1,000 mg PO BID [facility] Last Admin: 12/22/19 18:15 Dose: 1,000 mg Documented by: Atorvastatin Calcium (Lipitor) 20 mg PO DAILY [facility] Last Admin: 12/22/19 10:32 Dose: 20 mg Documented by: Azithromycin (Zithromax) 500 mg PO DAILY [facility]; Protocol Last Admin: 12/22/19 10:31 Dose: 500 mg Documented by: Benzonatate (Tessalon Pearls) 200 mg PO TID [facility] Last Admin: 12/22/19 18:16 Dose: 200 mg Documented by: Bisacodyl (Dulcolax) 10 mg PO DAILY PRN PRN Reason: CONSTIPATION Dexamethasone (Decadron) 6 mg IVP Q24H [facility] Last Admin: 12/22/19 18:08 Dose: 6 mg Documented by: Dextrose (D50w) 25 ml IVP ONCE PRN; Protocol PRN Reason: hypoglycemia protocol Dextrose (D50w) 50 ml IVP PRN PRN; Protocol PRN Reason: hypoglycemia protocol Enoxaparin Sodium (Lovenox) 120 mg SUBCUT Q12H [facility] Last Admin: 12/22/19 18:15 Dose: 120 mg Documented by: Enoxaparin Sodium (Lovenox) 30 mg SUBCUT Q12H [facility] Last Admin: 12/22/19 18:14 Dose: 30 mg Documented by: Escitalopram Oxalate (Lexapro) 10 mg PO DAILY [facility] Last Admin: 12/22/19 10:32 Dose: 10 mg Documented by: Famotidine (Pepcid Inj) 20 mg IVP Q12H [facility] Last Admin: 12/22/19 10:31 Dose: 20 mg Documented by: Furosemide (Lasix) 40 mg IVP Q12H [facility] Last Admin: 12/22/19 18:08 Dose: 40 mg Documented by: Glucagon (Glucagen) 1 mg IM ONCE PRN; Protocol PRN Reason: Adult Acute Hypoglycemia Prot. Dextrose (D5w) 500 mls @ 100 mls/hr IV ONCE PRN; Protocol PRN Reason: Adult Acute Hypoglycemia Prot Ceftriaxone Sodium 1,000 mg/ (Sodium Chloride) 50 mls @ 100 mls/hr IV Q24H [facility]; Protocol Last Admin: 12/22/19 12:32 Dose: 100 mls/hr Documented by: Insulin Aspart (Novolog) 0 unit SUBCUT Q4H [facility]; Protocol Last Admin: 12/22/19 18:07 Dose: 18 unit Documented by: Insulin Glargine (Lantus) 10 unit SUBCUT QAM [facility] Last Admin: 12/22/19 12:59 Dose: 10 unit Documented by: Levothyroxine Sodium (Synthroid) 75 mcg PO DAILY [facility] Last Admin: 12/22/19 10:33 Dose: 75 mcg Documented by: Ondansetron HCl (Zofran) 4 mg IVP Q6H PRN PRN Reason: NAUSEA AND VOMITING Fluticasone/Salmeterol (Advair Diskus 250-50) 1 puff INHALATION BID.RESPIRATORY [facility] Last Admin: 12/22/19 09:19 Dose: 1 puff Documented by: Thiamine Mononitrate (Vitamin B-1) 100 mg PO BID [facility] Last Admin: 12/22/19 18:15 Dose: 100 mg Documented by: Tiotropium [place] (Spiriva) 18 mcg INHALATION DAILY.RESPIRATORY [facility] Last Admin: 12/22/19 09:19 Dose: 1 puff Documented by: Zinc Gluconate (Zinc Gluconate) 50 mg PO DAILY [facility] Last Admin: 12/22/19 10:31 Dose: 50 mg Documented by: Discharge Plan Discharge Patient Disposition: Home, Self-Care Condition: Stable Prescriptions: No Action hydrocodone-acetaminophen 5-325 mg Tablet 1 tab PO Q6H PRN (Reason: Pain) RF: 0 simvastatin 10 mg Tablet 10 mg PO DAILY RF: 0 levothyroxine 75 mcg Tablet 75 mcg PO DAILY RF: 0 glimepiride 4 mg Tablet 4 mg PO BID RF: 0 Lasix 20 mg Tablet 10 mg PO DAILY PRN (Reason: Edema) RF: 0 Lexapro 10 mg Tablet 10 mg PO DAILY RF: 0 Novolin 70-30 FlexPen U-100 100 unit/mL (70-30) Insulin Pen See Rx Instructions .ROUTE .COMPLEX RF: 0 Referrals: Bunny Berg MD [Primary Care Provider] - Transfer Attestations Time Spent in Transfer Care*: greater than 30 min Specific Discharge Activities: Specific discharge activities: educating patient, educating and/or supporting family/caregiver, discussing with pcp/other providers, documenting/other paperwork and evaluating patient/reviewing data Status at Transfer: Cognitive status at transfer: cognitively intact , Behavioral status at transfer: cooperative , Functional status at transfer: other assisted ambulation Overall status at transfer: patient is not back to baseline Quality Metrics Clinical Quality Measures: During this hospital stay, did patient experience: None Coding Level of Care Code Acute Assistant Commissioner for Chg Fwd Diagnoses Community acquired pneumonia J18.9 Laterality: unspecified laterality Hypoxia R09.02 REINALDO (obstructive sleep apnea) G47.33 Myasthenia gravis G70.00 CKD (chronic kidney disease), stage III N18.3 Hypertension I10 Diabetes E11.9 Hypothyroid E03.9 Abdominal wall hematoma S30.1XXA Chronic steroid use ARDS (adult respiratory distress syndrome) J80 COVID-19 virus test result unknown Z20.828
[2019-12-22 20:16] LABS: Glucose Point of Care 323 mg/dL (70-110)
[2019-12-22 20:46] LABS: ABG PCO2 39.8 mmHg (35-45); ABG PH Result 7.53 (7.35-7.45); Alveolar-Arterial Oxygen Gradi 554.5 mmHg (5-10); Arterial Blood Gas Hematocrit 35.9 % (42-52); Base Excess ABG 9.9 mmol/L (-2.0-2.0); Blood Gas Allen Test Pos; Blood Gas Sample Site Radial, right; Blood Gas Sample Type Arterial; Carboxyhemoglobin 1.2 %THgb (0.4-20.1); HCO3 ABG 33.4 mmol/L (22-26); HGB O2 Sat 96.3 % (95-100); Ionized Calcium Level - ABG 1.1 mmol/L (1.1-1.4); Oxygen Device HAG; Oxygen Saturation ABG 98.4; PO2 ABG 93.2 mmHg (80.0-100.0); Potassium Level - ABG 3.4 mmol/L (3.5-5.0); Total Hemoglobin 11.7 g/dL (14-18)
--- NOTE | 2019-12-22 21:02 | PC.NURSE ---
report called to kreen copeland at [facility] in [place], [place]. room 47 in CCU.
[2019-12-22 22:01] LABS: Coronavirus Lab Test PTC SEE COMMENTS
--- NOTE | 2019-12-22 22:09 | PC.NURSE ---
positive covid-19 test reported to receiving facility and hospitalist.
== END 2019-12-22 23:00 | disposition short-term general hospital (02) | DRG 177 ==
LOC: ER 12:53 → MEDSURG 17:49 → ICU 12-22 17:41
PROVIDERS: Admitting Provider Student in an Organized Health Care Education/Training Program; Emergency Provider Family Medicine; Family Provider Family Medicine; PCP Family Medicine; Visit Provider Student in an Organized Health Care Education/Training Program
DX: U07.1 COVID-19 (principal); J80 Acute respiratory distress syndrome; J12.89 Other viral pneumonia; G47.33 Obstructive sleep apnea (adult) (pediatric); E03.9 Hypothyroidism, unspecified; N18.3 Chronic kidney disease, stage 3 (moderate); E11.22 Type 2 diabetes mellitus with diabetic chronic kidney disease; I12.9 Hypertensive chronic kidney disease with stage 1 through stage 4 chronic kidney disease, or unspecified chronic kidney disease; Z79.52 Long term (current) use of systemic steroids; G70.00 Myasthenia gravis without (acute) exacerbation; Z91.81 History of falling
CPT/HCPCS: 12345; 36415; 36416; 36600; 71045; 71250; 71275; 74176; 80048; 80051; 80053; 81001; 82728; 82810; 82962; 83036; 83540; 83550; 83605; 83615; 83880; 83986; 84145; 85025; 85378; 87040; 87070; 87205; 87281; 87449; 87635; 87804; 87806; 94640; 96372; 96375; 99284; J0696; J1100; J1650; J1815 ×2; J1885; J1940; J3490; J7030; J7512; J7799; Q0144; Q9967